=== PATIENT | female | born 1960 | race Caucasian/White ===

== ENCOUNTER 2017-03-05 05:09 | Emergency (ER) | payer BC | END 2017-03-05 05:35 | disposition home or self-care (01) | LOC: ER1 05:09 | DX: J02.9 Acute pharyngitis, unspecified (principal); I10 Essential (primary) hypertension; Z79.899 Other long term (current) drug therapy | CPT/HCPCS: 99282 ==

== ENCOUNTER → 2017-03-18 | Outpatient (CLI) | payer BC ==
[2017-03-18 06:58] LABS: HEMOGLOBIN 12.9 gm/dl (12.3-15.3); RED BLOOD COUNT 4.47 M/UL (4.00-5.10); WHITE BLOOD COUNT 7.6 K/UL (4.5-11.0)
[2017-03-18 07:22] LABS: BUN/CREATININE RATIO 24 (0-10)
== END ==
LOC: LAB 05:37
PROVIDERS: Nurse Practitioner Primary Care
DX: E66.9 Obesity, unspecified (principal); Z79.899 Other long term (current) drug therapy
CPT/HCPCS: 36415; 80053; 80061; 80307; 84443; 85025

== ENCOUNTER → 2017-04-15 | Outpatient (CLI) | payer BC | LOC: EXRD 03-23 14:30 | DX: M17.9 Osteoarthritis of knee, unspecified (principal); E66.9 Obesity, unspecified; I10 Essential (primary) hypertension; M21.372 Foot drop, left foot; F41.1 Generalized anxiety disorder; M51.9 Unspecified thoracic, thoracolumbar and lumbosacral intervertebral disc disorder; M81.0 Age-related osteoporosis without current pathological fracture | CPT/HCPCS: 77080 ==

== ENCOUNTER → 2021-03-26 | Outpatient (CLI) | payer BC ==
[~2021-03-26] MED LIST: AUGMENTIN 875-1 EACH PO; CYCLOBENZAPRINE10 MG PO; HYDROCHLOROTHIA25 MG PO; MOBIC7.5 MG PO; VALIUM5 MG PO; ZESTRIL10 MG PO
[2021-03-26 08:33] LABS: RED BLOOD COUNT 4.54 M/UL (4.00-5.10); WHITE BLOOD COUNT 9.3 K/UL (4.5-11.0)
[2021-03-26 10:37] LABS: BUN/CREATININE RATIO 24 (0-10)
== END ==
LOC: LAB 07:46
PROVIDERS: Physician Assistant Surgical
DX: I10 Essential (primary) hypertension (principal); I20.8 Other forms of angina pectoris; R23.3 Spontaneous ecchymoses
CPT/HCPCS: 36415; 80053; 80061; 84439; 84443; 85025